=== PATIENT | male | born 1950 | race Caucasian/White ===

== ENCOUNTER → 2017-03-11 | Outpatient (CLI) | payer OTHER ==
[~2017-03-11] MED LIST: ALBU0.086 NEB; BACT800T5 PO; BUDE0.5S INH; CALC600T12 PO; DICY1TAB26 PO; DOXY100T PO; FURO1TAB93 PO; LACTCAP7 PO; LIPI20TA PO; LISI-363 PO; METO25 PO; MORP30SU PO; MORP60TA20 PO; NEUR600T PO; PLAV75TA PO; POTA-267 PO; PROS5TAB2 PO; PROT40TA PO; ROPI1TAB72 PO; TAMS0.4C67 PO; TIZA4 PO; VITA500015 PO
--- NOTE | 2017-03-22 08:53 | RSPPFT ---
DATE OF PROCEDURE: 03/11/17 COMMENTS: Spirometry with FVC of 5.5 predicted 3.8, FEV1 of 3.5 predicted 3.0, FEV1/FVC ratio 64% predicted 80%. Air trapping is present with RV at 2.7 predicted 2.2. DLCO is 41% of predicted. IMPRESSION: Although the patient's flow values are within the predicted range, there is a decrease in the FEV1/FVC ratio and in the DLCO implying a mild obstructive lung defect.
== END ==
LOC: HRSP 11:54
PROVIDERS: ATTEND Internal Medicine Pulmonary Disease
DX: J44.9 Chronic obstructive pulmonary disease, unspecified (principal)
CPT/HCPCS: 94060; 94620; 94726; 94729

== ENCOUNTER → 2017-05-05 | Day surgery (SDC) | payer OTHER, MEDICAID ==
[~2017-05-05] VITALS: Ht 175.3 cm; Wt 68.1 kg
[~2017-05-05] MED LIST changes: +*morphine SULFATE 8 MG/ML PERIprocedure ONLY ONE; +ACETAMINOPHEN 500 MG CPLT PO PRN; +ALFU10TA2 PO; +ATOR20TA15 PO; +ATROPINE SULFATE 1% OPHT SOLN 2 ML BTL ONE; +BALANCED SALT SOLN OPHT IRRIG 15 ML BTL ONE; +CALC12502 PO; +CHLORHEXIDINE GLUCONATE 2 % 1 PACK (2 CLOTHS) TOPICAL PRN; +CHOL5000 PO; +CLOP75TA PO; +DEXAMETHASONE SOD PHOS 4 MG/ML VIAL ONE; +DEXI60CA2 PO; +DO NOT ADM ANY ANTICOAGULANT DRUGS PRN; +EPINEPHrine HCL (1:1000) 1 MG/ML VIAL ONE; +FAMOTIDINE 20 MG/2 ML VIAL ONE; +FINA5TAB2 PO; +FURO40TA PO; +INSULIN HUMAN REGULAR 1,000 UNITS/10 ML VIAL SQ PRN; +ISOS30TA3 PO; +LACTATED RINGER'S 1000 ML INJ 1,000 ML IV ONE; +LACTATED RINGER'S 1000 ML IV PRN; +METO25TA3 PO; +METOPROLOL TARTRATE 25 MG TAB PO PRN; +MIDAZOLAM HCL 2 MG/2 ML VIAL ONE; +MORP1TAB25 PO; +MULT-65 PO; +NALO1TAB2 PO; +NEOSTIGMINE 3 MG/3 ML SYR IV ONE; +ONDA1TAB17 PO; +ONDANSETRON HCL 4 MG/2 ML VIAL IV PRN; +PHENYLEPH/NS 1000 MCG/10 ML SYR IV ONE; +POTA-245 PO; +POVIDONE IODINE 5% (ANTISEPSIS KIT) 4 APPLICATIONS EACH NARE PRN; +PROPOFOL 200 MG/20 ML AMP IV ONE; +RANO500 PO; +ROPI1TAB PO; +SACU1TAB PO; +SODIUM CHLORID 0.9% 500 ML IV PRN; +SODIUM CHLORIDE 0.9% 20 ML VIAL ONE; +TOBRAMYCIN/DEXAMETHASONE OPTH OINT 3.5 GM TUBE ONE; +TRIAMCINOLONE ACETONIDE 40 MG/ML VIAL ONE; +ceFAZolin INJ 1,000 MG VIAL ONE; +ePHEDrine/NS 25 MG/5 ML SYR IV ONE; +fentaNYL CITRATE 250 MCG/5 ML AMP ONE
[2017-05-05] MEDS: ATROPINE SULFATE 1% OPHT SOLN 5 ML BTL LEFT EYE SCH ×3 (09:45→11:20)
[2017-05-05] MEDS: PHENYLEPHRINE HCL 2.5% OPTH SOLN 2 ML BTL LEFT EYE SCH ×4 (10:35→11:20)
[2017-05-05] MEDS: CYCLOPENTOLATE HCL 1% OPHT SOLN 2 ML BTL LEFT EYE SCH ×4 (10:35→11:20)
[2017-05-05] MEDS: TROPICAMIDE 1% OPHT SOLN 15 ML BTL LEFT EYE SCH ×4 (10:35→11:20)
--- NOTE | 2017-05-05 11:01 | EKG ---
Date Performed: 05/05/2017 Time Performed: 09:35:28 PTAGE: 66 years EKG: SINUS BRADYCARDIA WITH FIRST DEGREE AV BLOCK LEFT AXIS DEVIATION LEFT BUNDLE BRANCH BLOCK A BNORMAL ECG PREVIOUS TRACING : 07/16/2015 17.24 No significant change from previous tracing noted. DOCTOR: Leonard Crain Interpretating Date/Time 05/05/2017 11:00:55
[2017-05-05 11:05] LABS: AUTOMATED NEUTROPHIL # 3.4 TH/MM3 (1.8-7.7); BASOPHIL # 0.1 TH/MM3 (0-0.2); BASOPHIL % 1.1 % (0.0-2.0); EOSINOPHIL # 0.2 TH/MM3 (0-0.4); EOSINOPHIL % 3.7 % (0.0-4.0); HEMATOCRIT 32.8 % (39.0-51.0); HEMO FLAGS DIFF FINAL; LYMPH % 31.8 % (9.0-44.0); LYMPHOCYTE # 1.9 TH/MM3 (1.0-4.8); MEAN CELL VOLUME 88.9 FL (80.0-100.0); MEAN CORPUSCULAR HEMOGLOBIN 29.9 PG (27.0-34.0); MEAN CORPUSCULAR HGB CONC 33.7 % (32.0-36.0); MONO % 7.1 % (0.0-8.0); NEUT % 56.3 % (16.0-70.0); PLATELET COUNT 150 TH/MM3 (150-450); RED BLOOD COUNT 3.69 MIL/MM3 (4.50-5.90); RED CELL DISTRIBUTION WIDTH 14.2 % (11.6-17.2)
[2017-05-05 11:53] LABS: INTERNATIONAL NORMALIZED RATIO 1.1 RATIO; PROTHROMBIN TIME - PATIENT 11.9 SEC (9.8-11.6)
[2017-05-05 15:20] VITALS: BP 142/92; PULSE 84; RESP 18; TEMP 97.5; O2SAT 96
--- NOTE | 2017-05-07 17:35 | MP ---
cc: JONE IBARRA M.D. DATE OF SURGERY: 05/05/2017. PREOPERATIVE DIAGNOSIS: Recurrent rhegmatogenous retinal detachment left eye. POSTOPERATIVE DIAGNOSIS: Recurrent rhegmatogenous retinal detachment left eye. OPERATIVE PROCEDURE PERFORMED: Trans pars plana vitrectomy, gas-fluid exchange, endolaser photocoagulation, left eye. SURGEON: Jone Ibarra MD. ANESTHESIA General endotracheal tube anesthesia. INDICATIONS FOR THE PROCEDURE: Mr. Coffman is a 66-year-old gentleman with a history of a rhegmatogenous retinal detachment in his left eye which was repaired back in 2007 with a scleral buckle procedure and vitrectomy. Approximately five days ago he started to notice new floaters and then a shadow in his nasal visual field. When examined, he had a macula on temporal retinal detachment. The fluid went from approximately 12:30 to 1 o'clock down to about 5 o'clock. No retinal break was apparent. The macula was not involved. It was recommended he undergo another surgical procedure, namely a vitrectomy to repair the retinal detachment. The risks and benefits of surgery were discussed with the patient and he was consented for a vitrectomy and possible gas and possible silicone oil left eye. No guarantee was made as to visual outcome. DESCRIPTION OF THE PROCEDURE IN DETAIL: He was brought to [facility] operating room #1 and placed on the operating table. Appropriate anesthesia monitoring devices were applied and he was placed under general anesthesia using an endotracheal tube. The left eye was identified as the operative site and then prepped and draped in the usual sterile fashion. A lid speculum was placed. The microscope was brought around and adjusted. At this time, an appropriate time-out was called with the surgical team agreeing to the proposed procedure and the surgical site. Using the Ramy 23-gauge vitrectomy system, the trocar cannulas were placed 3.5 mm posterior to the limbus after first displacing the conjunctiva. ____ was placed at approximately 3 o'clock and verified to be in the posterior chamber. An infusion cannula was affixed to it and turned on. Two additional trocar cannulas were placed at 10 and 2 o'clock. The eye was entered with the Endo peripheral vascular tech light pipe and vitrectomy cutter. The BIOM wide angle viewing system was used along with scleral depression to trim previously left peripheral vitreous from when the patient has initial procedure and was phakic to cut back the vitreous now with that the patient was pseudophakic and trim it to the vitreous base and repair it with the scleral depression and further vitreous dissection, there may be a small flap tear at about 1 o'clock. That area was meticulously dissected. The retina was then flattened under Perfluoron liquid and endolaser photocoagulation placed on the posterior slope of the buckle and on the buckle from 12 to 6 o'clock. The number of laser spots placed was 1279 with a power of 200 milliwatts and 0.1-second exposure. The Perfluoron was exchanged for air first and then liquid and then the liquid was exchanged for air. However, a complete air-fluid exchange could not be performed because of condensation on the posterior surface of the lens despite the use of viscoelastic and other mother measures that prevented an adequate view to do a safe complete air-fluid exchange. To compensate for this, a 33% mixture of C3F8 gas which is slightly expansile was used to exchange out for the air inside the eye. The cannulas were then removed one by one with tamponade of the site with a cotton swab and diathermy to the overlying conjunctiva leaving the eye with good pressure and no visible air leaks. Atropine drops were placed on the cornea. Subconjunctival injections of Ancef 125 mg in 0.5 cc and Decadron 2 mg in 0.5 cc were given. The lid speculum was removed and the patient was undraped. TobraDex ointment was placed on the cornea and the left eye was patched and shielded. The patient had the endotracheal tube and removed in the room was returned to recovery in good condition laying on his right side. He will be asked to alternate face-down and right side positioning overnight and will check the status of his gas bubble and pressure first thing in the morning. It is expected that he will have a slow expansion of the gas and therefore no obvious expected trouble with the pressure. MD FREDDIE Castorena/SARTHAK /2:04 PM /5:20 PM
== END | disposition home or self-care (01) ==
LOC: HSDC 08:56
PROVIDERS: ATTEND Ophthalmology
DX: H33.022 Retinal detachment with multiple breaks, left eye (principal); I25.119 Atherosclerotic heart disease of native coronary artery with unspecified angina pectoris; J44.9 Chronic obstructive pulmonary disease, unspecified; M06.9 Rheumatoid arthritis, unspecified; K31.84 Gastroparesis; I10 Essential (primary) hypertension; Z01.810 Encounter for preprocedural cardiovascular examination; Z95.1 Presence of aortocoronary bypass graft; Z01.818 Encounter for other preprocedural examination
CPT/HCPCS: 00145; 67108; 85025; 85610; 93005; J0171; J0690; J1100; J2250; J2270; J2370; J2710; J3010; J7120; J3301

== ENCOUNTER 2017-11-04 10:39 | Day surgery (SDC) | payer OTHER ==
[~2017-11-04 10:39] MED LIST changes: -*morphine SULFATE 8 MG/ML PERIprocedure ONLY ONE; -ACETAMINOPHEN 500 MG CPLT PO PRN; -ALBU0.086 NEB; -ATROPINE SULFATE 1% OPHT SOLN 2 ML BTL ONE; -BACT800T5 PO; -BALANCED SALT SOLN OPHT IRRIG 15 ML BTL ONE; -BUDE0.5S INH; -CALC600T12 PO; -CHLORHEXIDINE GLUCONATE 2 % 1 PACK (2 CLOTHS) TOPICAL PRN; -DEXAMETHASONE SOD PHOS 4 MG/ML VIAL ONE; -DEXI60CA2 PO; +DEXI60CA3 PO; -DICY1TAB26 PO; -DO NOT ADM ANY ANTICOAGULANT DRUGS PRN; -DOXY100T PO; -EPINEPHrine HCL (1:1000) 1 MG/ML VIAL ONE; -FAMOTIDINE 20 MG/2 ML VIAL ONE; -FURO1TAB93 PO; -INSULIN HUMAN REGULAR 1,000 UNITS/10 ML VIAL SQ PRN; +KLOR20TA3 PO; -LACTATED RINGER'S 1000 ML INJ 1,000 ML IV ONE; -LACTATED RINGER'S 1000 ML IV PRN; -LACTCAP7 PO; -LIPI20TA PO; -LISI-363 PO; -METO25 PO; -METOPROLOL TARTRATE 25 MG TAB PO PRN; -MIDAZOLAM HCL 2 MG/2 ML VIAL ONE; -MORP30SU PO; -MORP60TA20 PO; -NEOSTIGMINE 3 MG/3 ML SYR IV ONE; -ONDA1TAB17 PO; +ONDA8TAB7 PO; -ONDANSETRON HCL 4 MG/2 ML VIAL IV PRN; -PHENYLEPH/NS 1000 MCG/10 ML SYR IV ONE; -PLAV75TA PO; -POTA-245 PO; -POTA-267 PO; -POVIDONE IODINE 5% (ANTISEPSIS KIT) 4 APPLICATIONS EACH NARE PRN; -PROPOFOL 200 MG/20 ML AMP IV ONE; -PROS5TAB2 PO; -PROT40TA PO; -ROPI1TAB72 PO; -SODIUM CHLORID 0.9% 500 ML IV PRN; -SODIUM CHLORIDE 0.9% 20 ML VIAL ONE; -TAMS0.4C67 PO; -TIZA4 PO; -TOBRAMYCIN/DEXAMETHASONE OPTH OINT 3.5 GM TUBE ONE; -TRIAMCINOLONE ACETONIDE 40 MG/ML VIAL ONE; -VITA500015 PO; -ceFAZolin INJ 1,000 MG VIAL ONE; -ePHEDrine/NS 25 MG/5 ML SYR IV ONE; -fentaNYL CITRATE 250 MCG/5 ML AMP ONE
[2017-11-04] MEDS ORDERED: ceFAZolin 2 GM PREMIX 50 ML IV SCH (11:45)
[2017-11-04] MEDS ORDERED: CHLORHEXIDINE GLUCONATE 2 % 1 PACK (2 CLOTHS) TOPICAL SCH (11:45)
[2017-11-04] MEDS ORDERED: MUPIROCIN 2% OINT 1 APPLIC/GM SYR NASAL SCH (11:45)
[2017-11-04] MEDS ORDERED: BACL10TA PO (11:51)
[2017-11-04] MEDS ORDERED: ETAN50CA (11:51)
[2017-11-04] MEDS ORDERED: APIX5TAB PO (11:51)
[2017-11-04] MEDS ORDERED: NS 1000 ML IV SCH (12:00)
[2017-11-04] MEDS ORDERED: MIDAZOLAM HCL 5 MG/ML VIAL (1 ML) ONE (12:44)
--- NOTE | 2017-11-04 15:23 | MR ---
cc: BELGICA MONCADA MD DATE: 11/04/2017. PROCEDURE PERFORMED: Loop recorder insertion. INDICATIONS FOR THE PROCEDURE: Atrial fibrillation diagnosis / management. DESCRIPTION OF THE PROCEDURE IN DETAIL: The patient was brought to the DOC unit in the postabsorptive state after informed consent was obtained. A 3ROAM LINQ loop order was inserted subcutaneously to the left chest. The patient tolerated procedure well without any apparent complications. Tachybrady pause and atrial fibrillation detection was enabled. The initial R-wave was 0.34 mV. The serial number was [id number]. MD JESE Mahoney/SARTHAK /1:07 PM /3:05 PM
== END 2017-11-04 16:12 | disposition home or self-care (01) ==
LOC: HDOC 10:39 → HDIC 10:39 → HDOC 16:12
PROVIDERS: ATTEND Nuclear Medicine Nuclear Cardiology
DX: I48.91 Unspecified atrial fibrillation (principal); I25.5 Ischemic cardiomyopathy
CPT/HCPCS: 33282; C1764; J0690; J2250; J3010